=== PATIENT | male | born 1995 | race Caucasian/White ===

== ENCOUNTER 2021-08-20 17:22 | Emergency (ER) | payer OTHER ==
[2021-08-20 20:36] LABS: BASOPHIL 0.4 % (0-2); EOSINOPHIL 0.2 % (0-5); HCT 41.2 % (42.0-52.0); HGB 13.9 g/dl (13.2-18.0); LYMPHOCYTE 7.9 % (15-48); MCH 30.8 pg (25.0-31.0); MCHC 33.7 g/dL (32.0-36.0); MCV 91.2 fL (78.0-100.0); MONOCYTE 8.6 % (0-12); MPV 12.4 fL (6.0-9.5); NEUTROPHIL 82.5 % (41-80); NRBC 0; PLT 145 K/uL (150-400); RBC 4.52 M/uL (4.70-6.00); RDW 12.1 % (11.5-14.0)
[2021-08-20 20:55] LABS: BILIRUBIN NEGATIVE (NEGATIVE); BLOOD 3+ Ery/uL (NEGATIVE); CLARITY CLEAR (CLEAR); COLOR YELLOW (YELLOW); GLUCOSE (U) NORMAL (NORMAL); LEUKOCYTES NEGATIVE Leu/uL (NEGATIVE); NITRITE NEGATIVE (NEGATIVE); PROTEIN NEGATIVE (NEGATIVE); UROBILINOGEN 0.2 mg/dL (0.2-1.0); pH 6.5 (5.0-9.0)
[2021-08-20 21:14] LABS: SQUAMOUS EPITHELIAL CELLS RARE
[2021-08-20 21:15] LABS: CREATININE 0.98 mg/dL (0.67-1.17); POTASSIUM 3.5 mmol/L (3.5-5.1)
[2021-08-20 21:16] LABS: BILIRUBIN - TOTAL 0.5 mg/dL (0.2-1.0); GLOBULIN (CALCULATION) 2.3 g/dL; TOTAL PROTEIN 6.3 g/dL (6.4-8.2)
[2021-08-20] MEDS ORDERED: NORCO 5-325 TA1 EACH PO (21:55)
[2021-08-20] MEDS ORDERED: KEFLEX250 MG PO (21:55)
== END 2021-08-20 23:07 | disposition home or self-care (01) ==
LOC: FER 17:22
PROVIDERS: Internal Medicine
DX: S70.02XA Contusion of left hip, initial encounter (principal); S50.812A Abrasion of left forearm, initial encounter; V49.40XA Driver injured in collision with unspecified motor vehicles in traffic accident, initial encounter
CPT/HCPCS: 36415; 70450; 70486; 71260; 72125; 72128; 72131; 73090; 73501; 80053; 81001; 85025; J1170; J2405; J7030; Q9967

== ENCOUNTER 2021-08-25 12:31 | Emergency (ER) | payer OTHER ==
[~2021-08-25 12:31] MED LIST: KEFLEX250 MG PO; NORCO 5-325 TA1 EACH PO
== END 2021-08-25 14:54 | disposition home or self-care (01) ==
LOC: FER 12:31
DX: S70.02XA Contusion of left hip, initial encounter (principal); S30.1XXA Contusion of abdominal wall, initial encounter; V89.2XXA Person injured in unspecified motor-vehicle accident, traffic, initial encounter
CPT/HCPCS: 99283